=== PATIENT | male | born 1955 | race Native Hawaiian/Other Pacific Islander ===

== ENCOUNTER 2017-02-19 19:31 | Emergency (ER) | payer OTHER ==
[~2017-02-19] VITALS: Ht 182.9 cm; Wt 54.4 kg
[~2017-02-19 19:31] MED LIST: ADOXA50 MG PO; CARDURA1 MG PO; PANT40TA PO
[2017-02-19 23:14] LABS: PLATELET COUNT 241 K/uL (142-355)
[2017-02-19 23:58] VITALS: BP 92/60; TEMP 98.4
== END 2017-02-20 00:02 | disposition home or self-care (01) ==
LOC: ED 19:31
PROVIDERS: Specialist
PROC: 0JQ90ZZ Repair Buttock Subcutaneous Tissue and Fascia, Open Approach (ICD-10-PCS; principal; 2017-02-19)
DX: D64.89 Other specified anemias (principal); S31.821A Laceration without foreign body of left buttock, initial encounter; S31.811A Laceration without foreign body of right buttock, initial encounter; S51.812A Laceration without foreign body of left forearm, initial encounter; W18.39XA Other fall on same level, initial encounter; Z91.81 History of falling; Y92.098 Other place in other non-institutional residence as the place of occurrence of the external cause
CPT/HCPCS: 85027; 99283

== ENCOUNTER 2017-02-21 11:14 | Outpatient (CLI) | payer OTHER ==
[~2017-02-21] VITALS: Ht 182.9 cm; Wt 48.5 kg
== END 2017-02-21 18:55 | disposition home or self-care (01) ==
LOC: INF 11:14
PROC: 30233N1 Transfusion of Nonautologous Red Blood Cells into Peripheral Vein, Percutaneous Approach (ICD-10-PCS; principal; 2017-02-21)
DX: D64.89 Other specified anemias (principal)
CPT/HCPCS: 36430; 86850; 86900; 86901; 86922; J1940; P9016

== ENCOUNTER → 2017-05-31 16:20 | Outpatient (CLI) | payer OTHER | END | disposition E | LOC: AMB 16:20 ==